=== PATIENT | female | born 1965 | race Asian ===

== ENCOUNTER 2017-11-13 07:27 | Emergency (ER) | payer OTHER ==
[~2017-11-13] VITALS: Ht 162.6 cm; Wt 63.5 kg
[2017-11-13] MEDS ORDERED: Metoclopramide 10mg/2ml Inj IVP ONE (08:00)
[2017-11-13] MEDS ORDERED: Mylanta II UD 30ml ORAL ONE (08:00)
[2017-11-13 08:05] VITALS: BP 111/75
--- NOTE | 2017-11-13 08:05 | Emergency Room Report ---
History of Present Illness General Chief Complaint: Abdominal Pain Source: Patient Present Illness HPI 51-year-old female walks in with complaints of 2 days of generalized stomach cramps, associated with bloating, gas and "fullness". No associated nausea, vomiting diarrhea, sick contacts, urinary complaints or fever or chills. No foreign travel. Prior but no other surgical history. no known medical problems. No history of renal stones or gallstones. Took some over-the -counter medication yesterday with mild improvement. History of "stomach problems" in the past. No history of endoscopy. Pain is epigastric - worse at middle of night, couldnt sleep last night. Allergies: Coded Allergies: No Known Allergies (Unverified , 11/13/17) Patient History Past Medical History: none Past Surgical History: none Pertinent Family History: none Social History: Denies: smoking, alcohol use, drug use Last Menstrual Period: 2012 Now: No Immunizations: UTD Reviewed Nursing Documentation: PMH: Agreed, PSxH: Agreed Nursing Documentation-PMH Past Medical History: No History, Except For Hx Gastrointestinal Problems: Yes Review of Systems All Other Systems: negative except mentioned in HPI Physical Exam Vital Signs Date Time Temp Pulse Resp B/P (MAP) Pulse Ox O2 Delivery O2 Flow Rate FiO2 11/13/17 07:35 97.0 74 16 120/66 95 Room Air Sp02 EP Interpretation: reviewed, normal General Appearance: normal inspection, well appearing, no apparent distress, alert, GCS 15, non-toxic Head: normocephalic, atraumatic Eyes: bilateral eye PERRL, bilateral eye EOMI ENT: normal ENT inspection, hearing grossly normal, normal pharynx, no angioedema, normal voice, TMs + canals normal, uvula midline, moist mucus membranes Neck: normal inspection, full range of motion, supple, thyroid normal, no meningismus, no bony tend Respiratory: normal inspection, lungs clear, normal breath sounds, no rhonchi, no respiratory distress, no retraction, no accessory muscle use, no wheezing, speaking full sentences Cardiovascular #1: regular rate, rhythm, no edema, no JVD, normal capillary refill Gastrointestinal: normal inspection, normal bowel sounds, non tender, soft, no mass, no peritonitis, non-distended, no guarding, no hernia, no pulsatile mass Genitourinary: no CVA tenderness Musculoskeletal: normal inspection, back normal, normal range of motion, no calf tenderness, pelvis stable, Jaimie's Sign negative Neurologic: normal inspection, alert, oriented x3, responsive, special education science teacher III-XII nml as tested, motor strength/tone normal, cerebellar normal, normal gait, speech normal Psychiatric: normal inspection, judgement/insight normal, mood/affect normal, no suicidal/homicidal ideation, no delusions Skin: normal inspection, normal color, no rash Lymphatic: normal inspection, no adenopathy Medical Decision Making Diagnostic Impression: Primary Impression: Abdominal pain Qualified Codes: R10.84 - Generalized abdominal pain Additional Impressions: Gastritis Qualified Codes: K29.50 - Unspecified chronic gastritis without bleeding UTI (urinary tract infection) Qualified Codes: N30.01 - Acute cystitis with hematuria ER Course 51-year-old female with 2 days of stomach pain No focal tenderness on exam Likely viral gastroenteritis given bloating and no focal tenderness, afebrile, and normal vital signs History of gastritis/GERD Labs: UA shows 1+ LE some bacteria, however many squamous cells. Urine is also slightly cloudy. No leukocytosis, H&H stable, no metabolic abnormalities. Unlikely ACS as cause of abdominal pain given troponin is 0 and EKG does not show ischemia Likely this is gastritis given known history of gastritis, pain worse in the middle of the night and mostly epigastric in nature with associated bloating Will discharge with Pepcid, recommended GI followup for endoscopy Giving gross analysis of cloudy urine and 1+ LE, and urine bacteria, we'll treat with Macrobid ER course: Patient has remained stable during ED stay. Patient is to be discharged to home. Prescriptions given are Pepcid, macrobid Patient is instructed to follow up with their primary care doctor within 5 days. Patient is instructed to follow up with GI specialist within 14 days. Strict return precautions discussed with patient such as fever, chills, worsening/severe pain, nausea, vomiting, which may indicate severe illness. Patient verbalizes understanding and agrees with plan. Please note that this Emergency Department Report was dictated using [employer] operator technology software, occasionally this can lead to erroneous entry secondary to interpretation by the dictation equipment EKG Diagnostic Results Rate: normal Rhythm: NSR ST Segments: no acute changes ASA given to the pt in ED: No Rhythm Strip Diag. Results EP Interpretation: yes Rate: 65 Rhythm: NSR, no PVC's, no ectopy Last Vital Signs Date Time Temp Pulse Resp B/P (MAP) Pulse Ox O2 Delivery O2 Flow Rate FiO2 11/13/17 07:35 97.0 74 16 120/66 95 Room Air Status: improved Disposition: HOME, SELF-CARE MADDISON VELIZ M.D. Nov 13, 2017 08:05
[2017-11-13 08:35] LABS: BASOPHILS % (AUTO) 0.5 % (0.0-2.0); EOSINOPHILS % (AUTO) 2.4 % (0.0-3.0); LYMPHOCYTES % (AUTO) 25.9 % (20.0-45.0); MEAN CORPUSCULAR HEMOGLOBIN 30.3 PG (27.0-31.0); MEAN CORPUSCULAR VOLUME 92 FL (80-99); MEAN PLATELET VOLUME 7.2 FL (6.5-10.1); MONOCYTES % (AUTO) 7.5 % (1.0-10.0); NEUTROPHILS % (AUTO) 63.7 % (45.0-75.0); PLATELET COUNT 268 K/UL (150-450); RED BLOOD COUNT 4.22 M/UL (4.20-5.40); RED CELL DISTRIBUTION WIDTH 11.1 % (11.6-14.8); WHITE BLOOD COUNT 8.9 K/UL (4.8-10.8)
[2017-11-13 08:37] LABS: KETONES,URINE NEGATIVE (NEGATIVE); LEUKOCYTE ESTERASE ,URINE 1+ (NEGATIVE); NITRITE,URINE NEGATIVE (NEGATIVE); PH,URINE 6.5 (4.5-8.0); PROTEIN,URINE 1+ (NEGATIVE); UROBILINOGEN,URINE NORMAL MG/DL (0.0-1.0)
[2017-11-13 08:42] LABS: ANION GAP 6 mmol/L (5-15); CALCIUM 9.3 MG/DL (8.5-10.1); CARBON DIOXIDE 28 MMOL/L (21-32); CHLORIDE 104 MMOL/L (98-107); CREATININE 0.7 MG/DL (0.55-1.30); GLOMERULAR FILTRATION RATE > 60 mL/min (>60); POTASSIUM 4.1 MMOL/L (3.5-5.1); SODIUM 138 MMOL/L (136-145)
[2017-11-13 08:43] LABS: APPEARANCE,URINE SLIGHTLY CLOUDY
[2017-11-13 08:47] LABS: ALANINE AMINOTRANSFERASE 33 U/L (12-78); ALBUMIN/GLOBULIN RATIO 0.8 (1.0-2.7); ASPARTATE AMINO TRANSFERASE 20 U/L (15-37); LIPASE 103 U/L (73-393); TOTAL PROTEIN 8.7 G/DL (6.4-8.2)
[2017-11-13 08:54] LABS: BACTERIA,URINE FEW /HPF; SQUAMOUS EPITHELIAL CELL,UR MANY /LPF (NONE/OCC)
[2017-11-13] MEDS ORDERED: NITROFURANTOIN100 M2 ORAL (09:00)
[2017-11-13] MEDS ORDERED: PEPCID40 MG PO (09:00)
[2017-11-13 09:15] VITALS: BP 107/73
--- NOTE | 2017-11-15 14:37 | Cardiology Report ---
APPROVED REPORT EKG Measurement Heart [id number] Normal sinus rhythm Normal ECG
== END 2017-11-13 09:15 | disposition home or self-care (01) ==
LOC: EMR 08:16
DX: K29.70 Gastritis, unspecified, without bleeding (principal); N39.0 Urinary tract infection, site not specified
CPT/HCPCS: 36415; 80053; 81003; 83690; 84484; 85025; 93005; 96374; 96375; 99284; J2765; S0028